=== PATIENT | male | born 1995 | race Caucasian/White ===

== ENCOUNTER 2017-04-07 10:02 | Emergency (ER) | payer MEDICAID ==
[~2017-04-07] VITALS: Ht 185.4 cm; Wt 90.9 kg
[2017-04-07 10:25] VITALS: BP 128/73; PULSE 80; RESP 16; O2SAT 99
--- NOTE | 2017-04-07 10:34 | ED.REPORT ---
HPI-General Illness Date of Service Apr 07, 2017 ED Provider: Bruce Gaxiola MD Nursing Notes Stated Complaint: PARASITE BITES AND POSS RT BROKEN HAND Chief Complaint: Skin Rash/Abscess Nursing Notes Reviewed: Yes Allergies: Coded Allergies: No Known Allergies (Unverified , 04/07/17) General Time Seen by MD: 10:30 Chief Complaint Rash Hx Obtained From: Patient Arrived By: Walk-in Sudden in Onset?: No Onset Occurred: More than a week ago... (2 weeks) Symptom Duration: Since onset Location: : Leg left: Leg right Severity: Current: Moderate Severity: Maximum: Moderate Recent Healthcare: No recent hospitalization Similar Sx Previous: No Past Medical History Family History Noncontributory Smoking History Unknown if Ever Smoker Social History Other Social History: Local resident Ambulatory Status Independent Review of Systems Full Review of Systems Skin: Reports Rash Complete sys rev & neg: except as marked. Physical Exam Vital Signs Vital Signs Date Time Temp Pulse Resp B/P Pulse Ox O2 Delivery O2 Flow Rate FiO2 04/07/17 10:25 36.6 80 16 128/73 99 Room Air Initial VS: Reviewed Re-Eval/Medical Decision Source of Hx: Old records Counseled Regarding: Diagnosis, Need for follow-up, When/why to return to ED Discharge & Departure Disposition: Home Discharge Condition All VS Reviewed: Yes Condition: Stable Additional Instructions: Thank you for seeking care at the emergency room. It is difficult for us to make definitive diagnoses in the ED but we believe that you are experiencing . Our primary goal today in the ED was to evaluate you for any life-threatening conditions. Your evaluation was reassuring. You will be discharged with a prescription for . You should follow-up with your primary doctor in the next week. You should return to the ED immediately if you develop fevers, vomiting, cough, shortness of breath, chest pain, lightheadedness, weakness or any other concerning signs or symptoms. Thank you for letting us partake in your care today. Scribe Attestation Portions of this note were transcribed by Sharri Velásquez. I, Dr. Gaxiola personally performed the history, physical exam and medical decision-making; I reviewed and confirmed the accuracy of the information in the transcribed note. Signed by: Adolfo Pierre, 04/07/2017 at [Time]. Bruce Gaxiola MD Apr 07, 2017 10:34 Sharri Velásquez Apr 07, 2017 10:47
== END 2017-04-07 11:00 | disposition left against medical advice (07) ==
LOC: SED 10:02
DX: Z53.21 Procedure and treatment not carried out due to patient leaving prior to being seen by health care provider (principal)